=== PATIENT | female | born 1955 | race Caucasian/White ===

== ENCOUNTER 2016-12-02 07:53 | Emergency (ER) | payer OTHER ==
[~2016-12-02] VITALS: Ht 162.6 cm; Wt 95.9 kg
[~2016-12-02 07:53] MED LIST: ADVAIR 250/501 DISK IH; AMLODIPINE BES2.5 MG PO; AMLODIPINE BESY10 MG PO; ANASTROZOLE1 MG PO; AZITHROMYCIN500 M1 PO; BENICAR HCT 401 EACH PO; CELEBREX200 MG PO; CELECOXIB200 MG PO; CIPRO500 MG PO; CIPROFLOXACIN500 M1 PO; CYCLOBENZAPRINE5 MG PO; DIOVAN HCT 31 TABLE1 PO; FUROSEMIDE20 MG PO; GABAPENTIN300 MG PO; GABAPENTIN400 MG PO; JANTOVEN5 MG PO; KEFLEX500 MG PO; LEVOTHYROXINE137 MCG PO; LOSARTAN-HCTZ1 EAC1 PO; MECLIZINE HCL25 MG PO; METOPROLOL SUCC50 MG PO; PERCOCET 5/31 TABLET PO; PREDNISONE20 MG PO; PREDNISONE5 MG PO; PROAIR HFA8.5 GM IH; SPIRIVA RESPIMAT4 GM IH; VALSARTAN160 MG PO; VERAPAMIL HCL120 M2 PO; XARELTO20 MG PO; ZITHROMAX Z-PA250 MG PO
[2016-12-02] MEDS ORDERED: METOPROLOL TART50 MG PO (08:44)
[2016-12-02] MEDS ORDERED: VALSARTAN320 MG PO (08:46)
[2016-12-02] MEDS ORDERED: INCRUSE ELLI62.5 MCG IH (08:48)
[2016-12-02] MEDS ORDERED: BENADRYL50 MG PO (08:49)
[2016-12-02 11:54] VITALS: BP 148/74
== END 2016-12-02 11:55 | disposition home or self-care (01) ==
LOC: EME 07:53
DX: M25.461 Effusion, right knee (principal); M25.561 Pain in right knee; I10 Essential (primary) hypertension; I48.91 Unspecified atrial fibrillation; Z79.01 Long term (current) use of anticoagulants; J44.9 Chronic obstructive pulmonary disease, unspecified; F17.200 Nicotine dependence, unspecified, uncomplicated
CPT/HCPCS: 73564; 99281; 99284; J1885

== ENCOUNTER 2017-03-02 11:27 | Day surgery (SDC) | payer OTHER ==
[~2017-03-02] VITALS: Ht 162.6 cm; Wt 90.0 kg
[~2017-03-02 11:27] MED LIST changes: +BENADRYL50 MG PO; +CALAN120 MG PO; +INCRUSE ELLI62.5 MCG IH; +IRON325 M1 PO; +METOPROLOL TART50 MG PO; +VALSARTAN320 MG PO
[2017-03-02 12:24] VITALS: BP 161/71
[2017-03-02 19:22] VITALS: BP 143/63
[2017-03-02 20:23] VITALS: BP 156/67
== END 2017-03-02 20:40 | disposition home or self-care (01) ==
LOC: SDC
DX: M17.11 Unilateral primary osteoarthritis, right knee (principal); S82.135A Nondisplaced fracture of medial condyle of left tibia, initial encounter for closed fracture; S83.231A Complex tear of medial meniscus, current injury, right knee, initial encounter; I11.9 Hypertensive heart disease without heart failure; I48.0 Paroxysmal atrial fibrillation; I35.1 Nonrheumatic aortic (valve) insufficiency; J44.9 Chronic obstructive pulmonary disease, unspecified; G47.33 Obstructive sleep apnea (adult) (pediatric); Z98.890 Other specified postprocedural states; E07.9 Disorder of thyroid, unspecified; Z79.01 Long term (current) use of anticoagulants; Z87.891 Personal history of nicotine dependence; E66.9 Obesity, unspecified; Z68.36 Body mass index [BMI] 36.0-36.9, adult; R42 Dizziness and giddiness; Z82.3 Family history of stroke; Z80.3 Family history of malignant neoplasm of breast
CPT/HCPCS: 73560; 76000; 93005; J0131; J0690; J1100; J1170; J1885; J2250; J2270; J2795; J3010